=== PATIENT | female | born 1950 | race Caucasian/White ===

== ENCOUNTER 2020-03-04 19:53 | Inpatient (IN) ==
[2020-03-04] MEDS ORDERED: SODIUM CHLORIDE 0.9% 1000ML 1,000 ML IV SCH (20:00)
--- NOTE | 2020-03-04 20:21 | XRay Report ---
XR chest 1V portable HISTORY: 69 years-old Female weakness acute weakness COMPARISON: Chest radiograph 06/25/2014 TECHNIQUE: Portable AP view the chest FINDINGS: Cardiac silhouette is mildly enlarged, unchanged. Calcified plaque the thoracic aortic arch. There is no pneumothorax, pleural effusion, airspace consolidation or overt pulmonary edema. Bones of the [address] appear grossly intact. IMPRESSION: No acute process. ACT 112: Negative or not required by law. The above report was generated using voice recognition software. It may contain grammatical, syntax o r spelling errors. Electronically signed by: Giovani Seay M.D. 03/04/2020 8:19 PM
[2020-03-04 20:32] LABS: Basophils # (auto) 0.01 K/uL (0-0.2); Basophils % (auto) 0.2 %; Eosinophils # (auto) 0.11 K/uL (0-0.5); Hematocrit (blood only) 22.4 % (37-47); Hemoglobin 7.2 g/dL (12.0-16.0); Immature Granulocytes # (auto) 0.02 K/uL (0.00-0.02); Immature Granulocytes % (auto) 0.4 %; Lymphocytes # (auto) 1.99 K/uL (1.2-3.4); Lymphocytes % (auto) 36.9 %; Mean Corpuscular Hemoglobin 29.5 pg (25-34); Mean Corpuscular Hgb Conc 32.1 g/dL (32-36); Mean Corpuscular Volume 91.8 fL (80-100); Mean Platelet Volume 9.2 fL (7.4-10.4); Monocytes # (auto) 0.53 K/uL (0.11-0.59); Monocytes % (auto) 9.8 %; Neutrophils # (auto) 2.74 K/uL (1.4-6.5); Neutrophils % (auto) 50.7 %; Platelet Count 245 K/uL (130-400); RDW Coefficient of Variation 15.7 % (11.5-14.5); RDW Standard Deviation 51.9 fL (36.4-46.3); Red Blood Count 2.44 M/uL (4.2-5.4)
[2020-03-04 20:52] LABS: Alanine Aminotransferase 48 U/L (12-78); Aspartate Aminotransferase 44 U/L (15-37); BUN Creatinine Ratio 21.1 (10-20); Blood Urea Nitrogen 20 mg/dl (7-18); Calcium 8.6 mg/dl (8.5-10.1); Carbon Dioxide 26 mmol/L (21-32); Chloride 104 mmol/L (98-107); Creatinine Clr Calc Pharmacy 61.9 ml/min; Est GFR (Non-African American) 59.5; Glucose 142 mg/dl (70-99); Potassium 3.8 mmol/L (3.5-5.1); Sodium 136 mmol/L (136-145)
[2020-03-04 21:02] LABS: Alkaline Phosphatase 48 U/L (45-117); Bilirubin,Total 0.4 mg/dl (0.2-1); Creatine Kinase 57 U/L (26-192); Troponin I < 0.015 ng/ml (0-0.045)
[2020-03-04] MEDS ORDERED: SODIUM CHLORIDE 0.9% 250 ML IV PRN (21:02)
[2020-03-04 21:08] LABS: RBC Morphology Unremarkable
[2020-03-04] MEDS ORDERED: PANTOPRAZOLE BOLUS/DRIP 1 EA IV STA (21:16)
[2020-03-04] MEDS ORDERED: PANTOprazole 80 MG in DEXTROSE 5% 100 ML IV ONE (21:16)
--- NOTE | 2020-03-04 22:03 | Emergency Department Note ---
History of Present Illness General Chief complaint: Syncope (Near Syncope) Stated complaint: NEAR SYNCOPE Time Seen by Provider: 03/04/20 19:58 Source: patient, EMS, RN notes reviewed and old records reviewed Mode of arrival: EMS Limitations: no limitations History of Present Illness Provider complaint: Syncopal episode Onset (ago): hour(s) less than 1 Associated symptoms: + weakness and + other (black tarry stool) Treatments prior to arrival: none This is a 69-year-old female who presents emergency department complaining of a syncopal episode. The patient reports she was heading to the house when she felt dizzy and passed out. Patient reports she had a similar episode and was previously in this emergency department and was found to be related to hyponatremia as well as hypokalemia. The patient denies any pain. Home Medications Home Medications Medication Instructions Recorded Confirmed Type carvedilol 6.25 mg PO BID 03/04/20 03/04/20 History escitalopram oxalate 10 mg PO DAILY 03/04/20 03/04/20 History ezetimibe 10 mg PO DAILY 03/04/20 03/04/20 History ferrous sulfate 325 mg PO DAILY 03/04/20 03/04/20 History montelukast 10 mg PO HS 03/04/20 03/04/20 History potassium chloride 20 meq PO BID 03/04/20 03/04/20 History ramipril 10 mg PO BID 03/04/20 03/04/20 History rivaroxaban [Xarelto] 20 mg PO DAILY 03/04/20 03/04/20 History rosuvastatin 40 mg PO DAILY 03/04/20 03/04/20 History sitagliptin [Januvia] 25 mg PO DAILY 03/04/20 03/04/20 History Allergies Allergy/AdvReac Type Severity Reaction Status Date / Time moxifloxacin Allergy Unknown RASH Verified 03/04/20 21:40 Quinolones Allergy Unknown HIVES-PT Verified 07/26/14 07:57 CAN'T RECALL THIS REACTION Past Med/Surg History Medical History (Updated 03/05/20 @ 20:35 by Manish Martell MD) Atrial fibrillation CAD (coronary artery disease) Depression Diabetes mellitus Hyperlipidemia Hypertension Iron deficiency Surgical History (Updated 03/05/20 @ 12:09 by Paco Hester MD) H/O knee surgery History of coronary artery stent placement History of hip surgery Social History Smoking Status: Former smoker Hx Alcohol Use: Yes Hx Substance Use: No Preferred Language: Divehi Communication Ability: Effective Beliefs That Will Affect Care: None Current Living Situation: Significant Other Feels Safe at Home: Yes Safety Concerns: Feels Safe At This Time Review of Systems A total of 10 systems reviewed and were otherwise negative Physical Exam Vital Signs Vital Signs - 24 hr 03/04/20 22:02 03/04/20 22:03 03/04/20 23:04 Temperature 36.9 C Temperature Source Oral Pulse Rate 62 Pulse Rate [Apical] 56 L Pulse Rate from SpO2 Sensor Respiratory Rate 16 18 18 Blood Pressure 136/60 Blood Pressure [Right Arm] 123/64 Blood Pressure Mean 85 Blood Pressure Mean [Right Arm] 83 Pulse Oximetry 100 98 Oxygen Delivery Method Room Air 03/04/20 23:15 03/04/20 23:25 03/04/20 23:26 Temperature 37 C Temperature Source Oral Pulse Rate 57 L 56 L 58 L Pulse Rate [Apical] 56 L Pulse Rate from SpO2 Sensor 58 L 58 L Respiratory Rate 18 18 17 Blood Pressure 138/75 133/55 L 133/55 L Blood Pressure [Right Arm] 138/75 Blood Pressure Mean 103 81 70 Blood Pressure Mean [Right Arm] 96 Pulse Oximetry 100 97 100 Oxygen Delivery Method Room Air VITAL SIGNS - Vital signs and nursing notes were reviewed. GENERAL - 69-year-old female appearing pale, stated age who is in no acute distress. Communicates well with provider and answers questions appropriately. SKIN - Without rashes. HEAD - NC/AT. EYES - PERRL with EOMI bilaterally. Sclera anicteric. Palpebral conjunctiva pink and moist with no injection noted. EARS - No deformities of external structures noted on gross examination bilaterally. No pain elicited with palpation of the tragus bilaterally. External auditory canals without discharge or otorrhea. Tympanic membranes pearly garcia without retraction or bulging. No fluid or purulent material visualized behind the TM. Handle of malleus, umbo, cone of light, pars tensa/flaccid all easily visualized. NOSE - Midline and without cyanosis. No epistaxis or purulent drainage noted. Septum midline without deviation or septal hematoma noted. MOUTH/OROPHARYNX - Without perioral cyanosis. Buccal mucosa pink and moist and without leukoplakia. Tongue midline with equal elevation of palate bilaterally. No tonsillar hypertrophy, erythema, or exudates noted. dentition noted. NECK - Neck with FROM. Supple to palpation. lymphadenopathy noted. No nuchal rigidity. LUNGS - Chest wall symmetric without accessory muscle use, intercostals retractions, or central cyanosis. Normal vesicular breath sounds CTA B/L. No wheezes, rales, or rhonchi appreciated. CARDIAC - RRR with S1/S2. No murmur, rubs, or gallops appreciated. ABDOMEN - Abdominal contour without pulsations or visible masses. BS no rmoactive all four quadrants. No tenderness, palpable masses, hepatosplenomegaly, or ascites noted. RECTAL: rectal vault empty EXTREMITIES - No clubbing or peripheral cyanosis. No pretibial edema present. +3/5 radial, posterior tibial, and dorsalis pedis pulses palpated throughout. +5/5 strength noted in UE/LE bilaterally. NEUROLOGIC - Cranial nerves II through XII grossly intact. Sensory intact to light touch throughout. Patellar reflexes +2/4. PSYCH - A&Ox3 and cooperates fully with examiner. Pt is very pleasant and interacts well with examiner. Course Administered Medications Potassium Chloride/Sodium Chloride (Normal Saline W/20 Meq Kcl) 20 meq in 1,000 mls @ 100 mls/hr IV .Q10H TARYN Stop: 04/04/20 02:14 Last Admin: 03/05/20 13:48 Dose: 100 mls/hr Documented by: [id number] Infusion: 03/05/20 13:26 Dose: 0 mls/hr Documented by: [id number] Admin: 03/05/20 02:59 Dose: 100 mls/hr Documented by: [id number] Iron Sucrose 300 mg/ Sodium (Chloride) 265 mls @ 176.667 mls/hr IV DAILY@1500 TARYN Stop: 03/07/20 16:29 Last Infusion: 03/05/20 16:07 Dose: 0 mls/hr Documented by: [id number] Admin: 03/05/20 14:27 Dose: 176.7 mls/hr Documented by: [id number] Insulin Aspart (Insulin Aspart 100 Units/Ml 3 Ml Pen) 0 units SC Q6 TARYN Stop: 04/04/20 02:14 Last Admin: 03/05/20 18:13 Dose: 4 units Documented by: [id number] Cosigned by: [id number] Admin: 03/05/20 13:58 Dose: Not Given Documented by: [id number] Cosigned by: [id number] Admin: 03/05/20 06:11 Dose: Not Given Documented by: [id number] Cosigned by: [id number] Admin: 03/05/20 02:28 Dose: Not Given Documented by: [id number] Cosigned by: [id number] Discontinued Medications Sodium Chloride (Nss 1000ml) 1,000 mls @ 999 mls/hr IV .Q1H1M TARYN Stop: 03/04/20 21:00 Last Infusion: 03/04/20 23:16 Dose: 0 mls/hr Documented by: [id number] Admin: 03/04/20 20:14 Dose: 999 mls/hr Documented by: [id number] Pantoprazole Sodium (Protonix Bolus/Drip) 0 mls @ 1 mls/hr IV ONE STA Stop: 03/04/20 21:17 Last Infusion: 03/05/20 02:20 Dose: 0 mls/hr Documented by: [id number] Admin: 03/04/20 22:02 Dose: 1 mls/hr Documented by: [id number] Pantoprazole Sodium 40 mg/ (Dextrose) 100 mls @ 20 mls/hr IV Q5H TARYN Stop: 04/03/20 21:30 Last Infusion: 03/05/20 18:28 Dose: 0 mg/hr, 0 mls/hr Documented by: [id number] Admin: 03/05/20 18:14 Dose: 8 mg/hr, 20 mls/hr Documented by: [id number] Infusion: 03/05/20 18:14 Dose: 8 mg/hr, 20 mls/hr Documented by: [id number] Admin: 03/05/20 13:54 Dose: 8 mg/hr, 20 mls/hr Documented by: [id number] Infusion: 03/05/20 13:27 Dose: 0 mg/hr, 0 mls/hr Documented by: [id number] Admin: 03/05/20 07:21 Dose: 8 mg/hr, 20 mls/hr Documented by: [id number] Infusion: 03/05/20 07:21 Dose: 8 mg/hr, 20 mls/hr Documented by: [id number] Admin: 03/05/20 03:00 Dose: 8 mg/hr, 20 mls/hr Documented by: [id number] Infusion: 03/05/20 03:00 Dose: 8 mg/hr, 20 mls/hr Documented by: [id number] Admin: 03/04/20 22:07 Dose: 8 mg/hr, 20 mls/hr Documented by: [id number] Pantoprazole Sodium 80 mg/ (Dextrose) 120 mls @ 400 mls/hr IV NOW ONE Stop: 03/04/20 21:33 Last Infusion: 03/04/20 23:16 Dose: 0 mls/hr Documented by: [id number] Admin: 03/04/20 21:55 Dose: 400 mls/hr Documented by: [id number] Ioversol (Ioversol 100ml) 93 ml IV ONCE ONE Stop: 03/04/20 22:08 Last Admin: 03/04/20 22:08 Dose: 1 ml Documented by: [id number] Critical Care Time I have personally spent greater than 30 minutes of critical care time in the direct management of this patient. This includes bedside care, interpretation of diagnostic studies, and testing, discussion with consultants, patient, and family members, and other required patient management activities. This 30 minutes is in excess of all separately billable procedures. Medical Decision Making Differential Diagnosis Vasovagal event, dehydration, infection, hypoglycemia, electrolyte abnormalities, cardiac sources, intracerebral event, pulmonary embolism, seizure, toxicologic, neurologic, as well as other pathologies. Medical Records Attestation: I reviewed the patient's medical records. Home Medications Current Medication List: was personally reviewed by me Laboratory Data Attestation: I reviewed the patient's lab results. Result diagrams: 03/05/20 17:30 03/04/20 19:20 Lab Results 03/04/20 03/04/20 03/04/20 Range/Units 19:20 19:20 21:15 WBC 5.40 (4.8-10.8) K/uL RBC 2.44 L (4.2-5.4) M/uL Hgb 7.2 L (12.0-16.0) g/dL Hct 22.4 L (37-47) % MCV 91.8 (80-100) fL MCH 29.5 (25-34) pg MCHC 32.1 (32-36) g/dL RDW Std Deviation 51.9 H (36.4-46.3) fL RDW Coeff of Mark 15.7 H (11.5-14.5) % Plt Count 245 (130-400) K/uL MPV 9.2 (7.4-10.4) fL Immature Gran % (Auto) 0.4 % Neut % (Auto) 50.7 % Lymph % (Auto) 36.9 % [place] % (Auto) 9.8 % Eos % (Auto) 2.0 % Baso % (Auto) 0.2 % Neut # (Auto) 2.74 (1.4-6.5) K/uL Lymph # (Auto) 1.99 (1.2-3.4) K/uL [place] # (Auto) 0.53 (0.11-0.59) K/uL Eos # (Auto) 0.11 (0-0.5) K/uL Baso # (Auto) 0.01 (0-0.2) K/uL Immature Gran # (Auto) 0.02 (0.00-0.02) K/uL RBC Morphology Unremarkable Sodium 136 (136-145) mmol/L Potassium 3.8 (3.5-5.1) mmol/L Chloride 104 (98-107) mmol/L Carbon Dioxide 26 (21-32) mmol/L Anion Gap 6.0 (3-11) BUN 20 H (7-18) mg/dl Creatinine 0.96 (0.6-1.2) mg/dl Est Cr Clr Drug Dosing 61.9 ml/min Est GFR ( Amer) 69.0 Est GFR (Non-Af Amer) 59.5 BUN/Creatinine Ratio 21.1 H (10-20) Glucose 142 H (70-99) mg/dl Calcium 8.6 (8.5-10.1) mg/dl Total Bilirubin 0.4 (0.2-1) mg/dl AST 44 H (15-37) U/L ALT 48 (12-78) U/L Alkaline Phosphatase 48 (45-117) U/L Total Creatine Kinase 57 (26-192) U/L Troponin I < 0.015 (0-0.045) ng/ml Total Protein 6.0 L (6.4-8.2) gm/dl Albumin 3.0 L (3.4-5.0) gm/dl Globulin 3.0 (2.5-4.0) gm/dl Albumin/Globulin Ratio 1.0 (0.9-2) TSH 2.270 (0.300-4.500) uIu/ml Blood Type A Positive Antibody Screen NEGATIVE Crossmatch See Detail Imaging Data Radiologist's Impression: [place], [place] [phone] XRay Report Patient: VICKY FONTENOT Admit Date: 03/04/20 MR#: [id number] Address1: [address] [place] [address] Acct ID:[id number] Address2: Date: 1950 [facility] Zip: [place] [address] Age: 69 Location: ED Sex: F Room/Bed: Att Phy: Diagnosis: SYNCOPE Venus Phy: PCP,NO Service Date: 03/04/20 [facility] Phy: Interpreting Phy: Brady Seay Admit Phy: Ordering Phy: Manish Martell MD cc: ~ XR chest 1V portable HISTORY: 69 years-old Female weakness acute weakness COMPARISON: Chest radiograph 06/25/2014 TECHNIQUE: Portable AP view the chest FINDINGS: Cardiac silhouette is mildly enlarged, unchanged. Calcified plaque the thoracic aortic arch. There is no pneumothorax, pleural effusion, airspace consolidation or overt pulmonary edema. Bones of the chest appear grossly intact. IMPRESSION: No acute process. ACT 112: Negative or not required by law. The above report was generated using voice recognition software. It may contain grammatical, syntax or spelling errors. Electronically signed by: Giovani Seay M.D. 03/04/2020 8:19 PM Dictated: 03/04/202018 Transcribed: 03/04/202018 CT abdomen pelvis with contrast: Colonic diverticuli without diverticulitis. Unremarkable appendix. No GI or urinary tract obstruction. ECG Data Attestation: I personally reviewed and interpreted this ECG as follows: Indication: + syncope Rate (beats per minute): 54 Rhythm: + sinus bradycardia ECG Intervals/blocks: + Normal QT-c (441) ECG [place]: + Normal ECG ST segments: no ST depression and no ST elevation Comparison ECG Date: from (06/25/2014) Change: no significant change Blood Pressure Blood Pressure Findings: Low blood pressure MDM Narrative Patient was seen and evaluated as above in room B8. Review was performed of nursing notes and vital signs. I did review pertinent previous visits and p atient history. After obtaining a thorough history and physical examination the above work up was performed. This is a 69-year-old female who presents emergency department complaining of a syncopal episode. Patient's hemoglobin was found to be 7. Patient reports a history of black and tarry stools although on physical examination she is heme- negative. Based on the history along with the fact that the patient is on Xarelto she was typed and crossed for 1 unit of packed red blood cells and s tarted on Protonix bolus and drip. I did discuss the case with the hospitalist service who did agree to admit the patient. An order was placed for continuous cardiac monitoring. The monitor shows a rate of 56 with NSR rhythm. The patient was evaluated during the global COVID-19 pandemic, and that diagnosis was suspected/considered upon their initial presentation. Their evaluation, treatment and testing was consistent with current guidelines for patients who present with complaints or symptoms that may be related to COVID- 19. Impression & Plan Black stool, Symptomatic anemia, Syncope and collapse Discharge Plan Visit Data Chief Complaint: Syncope (Near Syncope) Stated Complaint: NEAR SYNCOPE ED Provider: Manish Martell Discharge Problem: Black stool, Symptomatic anemia, Syncope and collapse Patient Disposition: Admitted As Inpatient Discharge Instructions Interventions: ED Discharge Assessment Last Done: 03/05/20 01:26
[2020-03-04] MEDS ORDERED: IOVERSOL 100ml IV ONE (22:07)
[2020-03-04] MEDS: PANTOprazole 40 MG in DEXTROSE 5% 100 ML IV SCH (22:07)
[2020-03-04] MEDS ORDERED: DEXTROSE 50% 50 ML SYRINGE IV PRN (23:29)
[2020-03-04] MEDS ORDERED: GLUCOSE 10 TABS/TUBE PO PRN (23:29)
[2020-03-04] MEDS ORDERED: GLUCAGON FOR INJ 1 MG VIAL SQ PRN (23:29)
[2020-03-04] MEDS ORDERED: GLUCOSE 40% GEL 15 GM TUBE PO PRN (23:29)
--- NOTE | 2020-03-04 23:38 | History & Physical Report ---
Date of Service March 04, 2020 Assessment & Plan (1) Syncope and collapse: Secondary to anemia Hold all antihypertensives Present on Admission?: Yes (2) Symptomatic anemia: Hemoglobin 7.2 upon admission. Orders from ED to transfuse 1 unit PRBCs. H&H every 4 hours. N.p.o. status Protonix bolus/drip per protocol Zofran 4 mg IV every 6 hours as needed Present on Admission?: Yes (3) Hyperlipidemia: Holding rosuvastatin due to n.p.o. status Present on Admission?: Yes (4) Atrial fibrillation: Atrial fibrillation/hypertension Hold Xarelto, carvedilol, potassium chloride, and ramipril. (5) Diabetes mellitus: Hold Januvia. Placed on Accu-Cheks before meals and at bedtime/every 6 hours with NovoLog coverage per scale Present on Admission?: Yes (6) Hypertension: See above Present on Admission?: Yes (7) Depression: Holding Lexapro due to n.p.o. status Present on Admission?: Yes (8) Iron deficiency: Holding iron due to n.p.o. status Present on Admission?: Yes History of Present Illness Chief Complaint: The patient presents to the emergency department with complaint of a syncopal episode that occurred while she was walking into her house, felt dizzy and then passed out. Primary Care Provider: Nba Garnett The patient is a 69-year-old female with a past medical history including syncope, hypertension, hyperlipidemia, iron deficiency, diabetes mellitus and atrial fibrillation. She has had a previous episode of syncope, which when assessed in emergency department was felt to be secondary to hyponatremia and hypokalemia. Work-up in emergency department included laboratories revealing hemoglobin of 7.2 and heme positive stool. She had no recent travels or sick exposures. She does regularly take Xarelto. Allergies Allergy/AdvReac Type Severity Reaction Status Date / Time moxifloxacin Allergy Unknown RASH Verified 03/04/20 21:40 Quinolones Allergy Unknown HIVES-PT Verified 07/26/14 07:57 CAN'T RECALL THIS REACTION Home Medications Home Medications Medication Instructions Recorded Confirmed Type carvedilol 6.25 mg PO BID 03/04/20 03/04/20 History escitalopram oxalate 10 mg PO DAILY 03/04/20 03/04/20 History ezetimibe 10 mg PO DAILY 03/04/20 03/04/20 History ferrous sulfate 325 mg PO DAILY 03/04/20 03/04/20 History montelukast 10 mg PO HS 03/04/20 03/04/20 History potassium chloride 20 meq PO BID 03/04/20 03/04/20 History ramipril 10 mg PO BID 03/04/20 03/04/20 History rivaroxaban [Xarelto] 20 mg PO DAILY 03/04/20 03/04/20 History rosuvastatin 40 mg PO DAILY 03/04/20 03/04/20 History sitagliptin [Januvia] 25 mg PO DAILY 03/04/20 03/04/20 History Past Med/Surg History Medical History (Updated 03/05/20 @ 02:30 by Nikhil Mueller MD) Atrial fibrillation Depression Diabetes mellitus Hyperlipidemia Hypertension Iron deficiency Social History Smoking Status: Never smoker Preferred Language: Kiswahili Feels Safe at Home: Yes Review of Systems Review of Systems: The patient denies chest pain, palpitations, shortness of breath, dyspnea on exertion, cough, lower extremity swelling, sore throat, fevers, chills, sweats, nausea, vomiting, diarrhea , constipation, abdominal pain, pelvic pain, blood in urine or stool, dysuria, urinary frequency or urgency, headache, rash, abnormal bruising or bleeding, imbalance, focal or generalized weakness, numbness or tingling in arms or legs, generalized arthralgias or myalgias, back or neck pain, or night sweats. The review of systems is otherwise negative other than for that already noted above, and at least 10 systems have been reviewed. Physical Exam Physical Exam: The patient is awake, alert and oriented 3, well developed and well nourished, normocephalic and atraumatic, lying in bed and in no acute distress. HEENT--PERRL, EOMI, mucous membranes and oropharynx normal. Neck--supple. No JVD. No bruits. Thyroid normal, trachea midline, no adenopathy. Heart--normal S1 and S2. No murmurs, rubs or gallops. Lungs--clear bilaterally, no respiratory distress, no accessory muscle use. Abdomen--normal bowel sounds and soft. Nontender. Nondistended. Extremities--no cyanosis or clubbing. No edema. Dermatologic--normal skin turgor, normal color, no abnormal lymph nodes, no rash. Neurologic--cranial nerves II through XII grossly intact. Rheumatologic--normal range of motion. Psychiatric--normal affect. Results & Data Results & Data ([facility]) Vital Signs (Past 12 Hours) Vital Signs Temp Pulse Pulse Resp BP BP Pulse Ox 03/04/20 23:25 98.6 F 56 L 18 133/55 L 97 03/04/20 23:15 56 L 18 138/75 100 03/04/20 23:04 98.4 F 62 18 136/60 98 03/04/20 22:03 56 L 18 123/64 100 03/04/20 20:10 98.4 F 59 L 18 108/77 100 Laboratory Results Laboratory Results WBC 5.40 K/uL (4.8-10.8) 03/04/20 19:20 RBC 2.44 M/uL (4.2-5.4) L 03/04/20 19:20 Hgb 7.2 g/dL (12.0-16.0) L 03/04/20 19:20 Hct 22.4 % (37-47) L 03/04/20 19:20 MCV 91.8 fL (80-100) 03/04/20 19:20 MCH 29.5 pg (25-34) 03/04/20 19:20 MCHC 32.1 g/dL (32-36) 03/04/20 19:20 RDW Std Deviation 51.9 fL (36.4-46.3) H 03/04/20 19:20 RDW Coeff of Mark 15.7 % (11.5-14.5) H 03/04/20 19:20 Plt Count 245 K/uL (130-400) 03/04/20 19:20 MPV 9.2 fL (7.4-10.4) 03/04/20 19:20 Immature Gran % (Auto) 0.4 % 03/04/20 19:20 Neut % (Auto) 50.7 % 03/04/20 19:20 Lymph % (Auto) 36.9 % 03/04/20 19:20 Nicholas % (Auto) 9.8 % 03/04/20 19:20 Eos % (Auto) 2.0 % 08/14/20 19:20 Baso % (Auto) 0.2 % 03/04/20 19:20 Neut # (Auto) 2.74 K/uL (1.4-6.5) 03/04/20 19:20 Lymph # (Auto) 1.99 K/uL (1.2-3.4) 03/04/20 19:20 Nicholas # (Auto) 0.53 K/uL (0.11-0.59) 03/04/20 19:20 Eos # (Auto) 0.11 K/uL (0-0.5) 03/04/20 19:20 Baso # (Auto) 0.01 K/uL (0-0.2) 03/04/20 19:20 Immature Gran # (Auto) 0.02 K/uL (0.00-0.02) 03/04/20 19:20 RBC Morphology Unremarkable 03/04/20 19:20 Sodium 136 mmol/L (136-145) 03/04/20 19:20 Potassium 3.8 mmol/L (3.5-5.1) 03/04/20 19:20 Chloride 104 mmol/L (98-107) 03/04/20 19:20 Carbon Dioxide 26 mmol/L (21-32) 03/04/20 19:20 Anion Gap 6.0 (3-11) 03/04/20 19:20 BUN 20 mg/dl (7-18) H 03/04/20 19:20 Creatinine 0.96 mg/dl (0.6-1.2) 03/04/20 19:20 Est Cr Clr Drug Dosing 61.9 ml/min 03/04/20 19:20 Est GFR ( Amer) 69.0 03/04/20 19:20 Est GFR (Non-Af Amer) 59.5 03/04/20 19:20 BUN/Creatinine Ratio 21.1 (10-20) H 03/04/20 19:20 Glucose 142 mg/dl (70-99) H 03/04/20 19:20 Calcium 8.6 mg/dl (8.5-10.1) 03/04/20 19:20 Total Bilirubin 0.4 mg/dl (0.2-1) 03/04/20 19:20 AST 44 U/L (15-37) H 03/04/20 19:20 ALT 48 U/L (12-78) 03/04/20 19:20 Alkaline Phosphatase 48 U/L (45-117) 03/04/20 19:20 Total Creatine Kinase 57 U/L (26-192) 03/04/20 19:20 Troponin I < 0.015 ng/ml (0-0.045) 03/04/20 19:20 Total Protein 6.0 gm/dl (6.4-8.2) L 03/04/20 19:20 Albumin 3.0 gm/dl (3.4-5.0) L 03/04/20 19:20 Globulin 3.0 gm/dl (2.5-4.0) 03/04/20 19:20 Albumin/Globulin Ratio 1.0 (0.9-2) 03/04/20 19:20 TSH 2.270 uIu/ml (0.300-4.500) 03/04/20 19:20 Blood Type A Positive 03/04/20 21:15 Antibody Screen NEGATIVE 03/04/20 21:15 Crossmatch See Detail 03/04/20 21:15 Diagnostic Findings [place] [phone] XRay Report Patient: VICKY FONTENOT Date: 03/04/20 MR#: [id number]: [address] [facility] Acct ID:[id number]: Date: [address] Zip: [place] [address] Age: 69Location: ED Sex: F Room/Bed: Att Phy:Diagnosis: SYNCOPE Venus Phy: PCP,NOService Date: 03/04/20 Fam Phy:Interpreting Phy: Brady Seay Admit Phy: Ordering Phy: Manish Martell MD cc: ~ XR chest 1V portable HISTORY: 69 years-old Female weakness acute weakness COMPARISON: Chest radiograph 06/25/2014 TECHNIQUE: Portable AP view the chest FINDINGS: Cardiac silhouette is mildly enlarged, unchanged. Calcified plaque the thoracic aortic arch. There is no pneumothorax, pleural effusion, airspace consolidation or overt pulmonary edema. Bones of the chest appear grossly intact. IMPRESSION: No acute process. ACT 112: Negative or not required by law. The above report was generated using voice recognition software. It may contain grammatical, syntax or spelling errors. Electronically signed by: Giovani Seay M.D. 03/04/2020 8:19 PM Dictated: 03/04/202018 Transcribed: 03/04/202018 [facility] Patient: VICKY FONTENOT (Female) : 46 Status: ER Date: 03/04/20 22:25 Room #: History: abd pain low blood count Slices: [phone] Priors: Tech: Tai Gtz @ [phone] Exams: CT ABDOMEN & PELVIS With Contrast Contrast: IV Amt: 93 ml optiray Accession Numbers: [id number] Preliminary Findings Only See Final Report For Complete Findings CT ABDOMEN & PELVIS With Contrast: Colonic diverticula without diverticulitis. Unremarkable appendix. No GI or urinary tract obstruction. Radiologist: Can Denise M.D. Study ready at 22:26 and initial results transmitted at 22:57 *This report constitutes a preliminary interpretation only. Non-acute findings felt to be unrelated to the clinical presentation may not be discussed in this report. The study will be interpreted and a final report will be generated by the local Radiologist the following shift. To reach the hospital radiology department call [phone]. If a discrepancy is found between the preliminary and final interpretations of this study, please notify us via our Client Portal at [email or web address].You can also fax this report with a description of the discrepancy, or include the final report, to our daytime fax number [phone].If faxing, please indicate the severity of discrepancy using one of the following categories: [ ] 1 - Agree/Informational [ ] 2 - Unlikely to Affect Management [ ] 3 - Possible Eventual Change of Management [ ] 4 - Probable Immediate Change of Management For all other patient related information, please fax us at [phone]. [id number] Code Status & VTE Plan Code Status Full code VTE Prophylaxis Plan VTE Prophylaxis will be ordered: Yes PG Care Time/CCT Total # of Minutes Spent Total Time Spent with Patient: Total time spent is greater than 50% in coordination of care (as documented) at patient's floor/unit and/or counseling patient: Coding Level of Care Code 41526 Initial Inpt Care Lvl 3 Diagnoses Syncope and collapse R55 Symptomatic anemia D64.9 Hyperlipidemia E78.5 Atrial fibrillation I48.91 Diabetes mellitus E11.9 Hypertension I10 Depression F32.9 Iron deficiency E61.1
[2020-03-05] MEDS: INSULIN ASPART 100 UNITS/ML 3 ML PEN SC SCH ×4 (02:28→18:13)
[2020-03-05 02:50] LABS: Hematocrit (blood only) 23.6 % (37-47); Hemoglobin 7.7 g/dL (12.0-16.0)
[2020-03-05] MEDS: NSS + 20MEQ KCL 20 MEQ/1,000 ML BAG IV SCH ×2 (02:59→13:48)
[2020-03-05] MEDS: PANTOprazole 40 MG in DEXTROSE 5% 100 ML IV SCH ×4 (03:00→18:14)
--- NOTE | 2020-03-05 07:37 | CT Scan Report ---
CT abd pelvis IV con only CLINICAL HISTORY: Abdominal pain COMPARISON STUDY: None. TECHNIQUE: The patient was scanned in a dynamic helical fashion during intravenous administration of 93 cc of Optiray 320 A dose lowering technique was utilized adhering to the principles of ALARA. CT DOSE: 783.81 mGy.cm FINDINGS: Lower chest: There are mild basilar atelectatic changes. There is no pericardial effusion. Liver: There is a 3 mm right lobe hepatic hypodensity, likely benign. Portal veins appear patent. There is no ductal dilatation. Gallbladder: Unremarkable. Spleen: Normal in size and attenuation. Pancreas: Unremarkable. Adrenal glands: Unremarkable. Kidneys: There is symmetric renal cortical enhancement. The kidneys are normal in size without hydron ephrosis. Bowel: There are no transition zones to indicate bowel obstruction. There is no evidence of acute div erticulitis. There is mild fecal retention. Appears normal. Peritoneum: There is no intraperitoneal free air or abdominal ascites. Vasculature: The abdominal aorta is normal in course and caliber. Adenopathy: None. Pelvic viscera: The bladder, and pelvic viscera are unremarkable. Skeletal structures: There is a total right hip arthroplasty. No destructive skeletal lesions are vis ualized. IMPRESSION: 1. No acute intra-abdominal findings. 2. No evidence of bowel obstruction. No evidence of free air 3. No evidence of acute diverticulitis. Normal appendix 4. Mild fecal retention ACT 112: Negative or not required by law. Electronically signed by: Victor Hugo Condon M.D. 03/05/2020 7:36 AM
[2020-03-05 07:43] LABS: Hemoglobin 7.7 g/dL (12.0-16.0)
[2020-03-05 08:02] LABS: Estimated Average Glucose 117 mg/dl; Hemoglobin A1C 5.7 % (4.5-5.6)
--- NOTE | 2020-03-05 11:53 | Gastrointestinal Consultation ---
Date of Consultation March 05, 2020 Assessment & Plan (1) Symptomatic anemia: EGD today to r/o UGI source of blood loss. (2) Black stool: History of Present Illness Attending Physician: Dewayne Skinner MD History of Present Illness 69 years old female patient with medical comorbids of HTN, DLP, AFIB on Xarelto, admitted with black stool and symptomatic anemia, given PRBC and feels better, denies abdominal pain, nausea or vomiting, no NSAIDs use. Allergies Allergy/AdvReac Type Severity Reaction Status Date / Time moxifloxacin Allergy Unknown RASH Verified 03/04/20 21:40 Quinolones Allergy Unknown HIVES-PT Verified 07/26/14 07:57 CAN'T RECALL THIS REACTION Home Medications Home Medications Medication Instructions Recorded Confirmed Type carvedilol 6.25 mg PO BID 03/04/20 03/04/20 History escitalopram oxalate 10 mg PO DAILY 03/04/20 03/04/20 History ezetimibe 10 mg PO DAILY 03/04/20 03/04/20 History ferrous sulfate 325 mg PO DAILY 03/04/20 03/04/20 History montelukast 10 mg PO HS 03/04/20 03/04/20 History potassium chloride 20 meq PO BID 03/04/20 03/04/20 History ramipril 10 mg PO BID 03/04/20 03/04/20 History rivaroxaban [Xarelto] 20 mg PO DAILY 03/04/20 03/04/20 History rosuvastatin 40 mg PO DAILY 03/04/20 03/04/20 History sitagliptin [Januvia] 25 mg PO DAILY 03/04/20 03/04/20 History Patient History Medical History (Updated 03/05/20 @ 11:52 by Adan Meadows MD) Atrial fibrillation Depression Diabetes mellitus Hyperlipidemia Hypertension Iron deficiency Social History Smoking Status: Former smoker Hx Alcohol Use: Yes Hx Substance Use: No Preferred Language: Setswana Communication Ability: Effective Beliefs That Will Affect Care: None Current Living Situation: Significant Other Feels Safe at Home: Yes Safety Concerns: Feels Safe At This Time Review of Systems Constitutional: no fever, no chills, no fatigue and no weight loss Eyes: no eye pain and no worsening vision Ear, Nose, Mouth, Throat: no tinnitus, no dizziness, no nasal discharge and no epistaxis Respiratory: no cough, no dyspnea, no dyspnea on exertion and no wheezing Cardiovascular: no chest pain, no orthopnea, no palpitations and no edema Gastrointestinal: as per Subjective / HPI Genitourinary: no dysuria, no urinary frequency, no urinary incontinence and no hematuria Musculoskeletal: no stiffness and no myalgia Neurologic: no localized weakness, no paralysis, no tremor(s) and no headache(s) Endocrine: no polydipsia and no polyuria Hematologic / Lymphatic: no easy bleeding and no night sweats Physical Exam Constitutional: + well hydrated, cooperative and comfortable Eyes: PERRL, conjunctivae normal, anicteric sclerae ENMT: external ear and nose normal, oropharynx normal Neck: normal visual inspection and trachea midline Respiratory: normal respiratory effort, lungs clear to auscultation Auscultation: no wheezes Cardiovascular: RRR, no murmur, no edema Gastrointestinal (Abdomen): normal bowel sounds, soft, nontender, no hepatosplenomegaly Musculoskeletal: no cyanosis or clubbing, extremities motor strength 5/5 Skin: no rashes, warm and dry Neurologic: awake; no focal motor deficits Motor/Sensory: no tremor Results & Data ([facility]) Vital Signs (Past 12 Hours) Vital Signs Temp Pulse Pulse Resp BP BP Pulse Ox 03/05/20 11:47 36.8 C 86 17 120/69 100 03/05/20 08:07 36.6 C 57 L 18 121/71 97 03/05/20 08:00 54 L 03/05/20 04:05 36.8 C 56 L 19 114/65 99 03/05/20 02:38 36.7 C 50 L 16 132/74 93 03/05/20 00:45 54 L 18 131/64 100 03/05/20 00:41 56 L 18 131/64 100 03/05/20 00:30 56 L 18 127/63 99 03/05/20 00:15 56 L 18 132/66 100 03/05/20 00:11 56 L 18 132/66 97 Laboratory Results Laboratory Results - last 24 hr 03/04/20 03/04/20 03/04/20 19:20 19:20 21:15 WBC 5.40 RBC 2.44 L Hgb 7.2 L Hct 22.4 L MCV 91.8 MCH 29.5 MCHC 32.1 RDW Std Deviation 51.9 H RDW Coeff of Mark 15.7 H Plt Count 245 MPV 9.2 Immature Gran % (Auto) 0.4 Neut % (Auto) 50.7 Lymph % (Auto) 36.9 [place] % (Auto) 9.8 Eos % (Auto) 2.0 Baso % (Auto) 0.2 Neut # (Auto) 2.74 Lymph # (Auto) 1.99 [place] # (Auto) 0.53 Eos # (Auto) 0.11 Baso # (Auto) 0.01 Immature Gran # (Auto) 0.02 RBC Morphology Unremarkable Sodium 136 Potassium 3.8 Chloride 104 Carbon Dioxide 26 Anion Gap 6.0 BUN 20 H Creatinine 0.96 Est Cr Clr Drug Dosing 61.9 Est GFR ( Amer) 69.0 Est GFR (Non-Af Amer) 59.5 BUN/Creatinine Ratio 21.1 H Glucose 142 H POC Glucose Estimat Average Glucose Hemoglobin A1c Calcium 8.6 Total Bilirubin 0.4 AST 44 H ALT 48 Alkaline Phosphatase 48 Total Creatine Kinase 57 Troponin I < 0.015 Total Protein 6.0 L Albumin 3.0 L Globulin 3.0 Albumin/Globulin Ratio 1.0 TSH 2.270 COVID-19 Eval Order SARS-CoV-2, RNA, NAAT Blood Type A Positive Antibody Screen NEGATIVE Crossmatch See Detail 03/05/20 03/05/20 03/05/20 02:26 02:42 06:09 WBC RBC Hgb 7.7 L Hct 23.6 L MCV MCH MCHC RDW Std Deviation RDW Coeff of Mark Plt Count MPV Immature Gran % (Auto) Neut % (Auto) Lymph % (Auto) [place] % (Auto) Eos % (Auto) Baso % (Auto) Neut # (Auto) Lymph # (Auto) [place] # (Auto) Eos # (Auto) Baso # (Auto) Immature Gran # (Auto) RBC Morphology Sodium Potassium Chloride Carbon Dioxide Anion Gap BUN Creatinine Est Cr Clr Drug Dosing Est GFR ( Amer) Est GFR (Non-Af Amer) BUN/Creatinine Ratio Glucose POC Glucose 118 H 109 H Estimat Average Glucose Hemoglobin A1c Calcium Total Bilirubin AST ALT Alkaline Phosphatase Total Creatine Kinase Troponin I Total Protein Albumin Globulin Albumin/Globulin Ratio TSH COVID-19 Eval Order SARS-CoV-2, RNA, NAAT Blood Type Antibody Screen Crossmatch 03/05/20 03/05/20 03/05/20 06:45 06:45 10:30 WBC RBC Hgb 7.7 L Hct 24.0 L MCV MCH MCHC RDW Std Deviation RDW Coeff of Mark Plt Count MPV Immature Gran % (Auto) Neut % (Auto) Lymph % (Auto) [place] % (Auto) Eos % (Auto) Baso % (Auto) Neut # (Auto) Lymph # (Auto) [place] # (Auto) Eos # (Auto) Baso # (Auto) Immature Gran # (Auto) RBC Morphology Sodium Potassium Chloride Carbon Dioxide Anion Gap BUN Creatinine Est Cr Clr Drug Dosing Est GFR ( Amer) Est GFR (Non-Af Amer) BUN/Creatinine Ratio Glucose POC Glucose Estimat Average Glucose 117 Hemoglobin A1c 5.7 H Calcium Total Bilirubin AST ALT Alkaline Phosphatase Total Creatine Kinase Troponin I Total Protein Albumin Globulin Albumin/Globulin Ratio TSH COVID-19 Eval [facility] SARS-CoV-2, RNA, NAAT Blood Type Antibody Screen Crossmatch 03/05/20 10:30 WBC RBC Hgb Hct MCV MCH MCHC RDW Std Deviation RDW Coeff of Mark Plt Count MPV Immature Gran % (Auto) Neut % (Auto) Lymph % (Auto) [place] % (Auto) Eos % (Auto) Baso % (Auto) Neut # (Auto) Lymph # (Auto) [place] # (Auto) Eos # (Auto) Baso # (Auto) Immature Gran # (Auto) RBC Morphology Sodium Potassium Chloride Carbon Dioxide Anion Gap BUN Creatinine Est Cr Clr Drug Dosing Est GFR ( Amer) Est GFR (Non-Af Amer) BUN/Creatinine Ratio Glucose POC Glucose Estimat Average Glucose Hemoglobin A1c Calcium Total Bilirubin AST ALT Alkaline Phosphatase Total Creatine Kinase Troponin I Total Protein Albumin Globulin Albumin/Globulin Ratio TSH COVID-19 Eval Order SARS-CoV-2, RNA, NAAT NEGATIVE Blood Type Antibody Screen Crossmatch
[2020-03-05] MEDS ORDERED: LIDOCAINE HCL 2% 2 ML VIAL/AMP(20MG/ML) INFIL ONE (12:00)
[2020-03-05] MEDS ORDERED: PROPOFOL IV EMULSION 10 MG/ML 20 ML VIAL IV ONE (12:00)
--- NOTE | 2020-03-05 12:01 | Anesthesiology Consultation ---
Date of Service March 05, 2020 Assessment & Plan (1) Encounter for pre-operative examination: Chart Review Chart Review: Acceptable Risk for Surgery and Patient NOT seen in Pre Admission Testing Consults Requested none History Surgery Operation Date: 03/05/20 12:00 Proposed Procedures p Esophagogastroduodenoscopy - Adan Meadows MD Height/Weight Height: 5 ft 5 in Weight: 86.5 kg Allergies Allergy/AdvReac Type Severity Reaction Status Date / Time moxifloxacin Allergy Unknown RASH Verified 03/04/20 21:40 Quinolones Allergy Unknown HIVES-PT Verified 07/26/14 07:57 CAN'T RECALL THIS REACTION Medications Home Medications Medication Instructions Recorded Confirmed Last Taken carvedilol 6.25 mg PO BID 03/04/20 03/04/20 Unknown escitalopram oxalate 10 mg PO DAILY 03/04/20 03/04/20 Unknown ezetimibe 10 mg PO DAILY 03/04/20 03/04/20 Unknown ferrous sulfate 325 mg PO DAILY 03/04/20 03/04/20 Unknown montelukast 10 mg PO HS 03/04/20 03/04/20 Unknown potassium chloride 20 meq PO BID 03/04/20 03/04/20 Unknown ramipril 10 mg PO BID 03/04/20 03/04/20 Unknown rivaroxaban [Xarelto] 20 mg PO DAILY 03/04/20 03/04/20 Unknown rosuvastatin 40 mg PO DAILY 03/04/20 03/04/20 Unknown sitagliptin [Januvia] 25 mg PO DAILY 03/04/20 03/04/20 Unknown Active Medications Generic Name Dose Route Start Last Admin Trade Name Freq PRN Reason Stop Dose Admin Pantoprazole Sodium 40 mg/ 100 mls @ 20 mls/hr 03/04/20 21:31 03/05/20 07:21 Dextrose IV 04/03/20 21:30 8 mg/hr Q5H TARYN 20 mls/hr Administration 8 MG/HR Potassium Chloride/Sodium Chloride 20 meq in 1,000 mls @ 100 mls/hr 03/05/20 02:15 03/05/20 02:59 Normal Saline W/20 Meq Kcl IV 04/04/20 02:14 100 mls/hr .Q10H TARYN Administration Insulin Aspart 0 units 03/05/20 02:15 03/05/20 06:11 Insulin Aspart 100 Units/Ml 3 Ml Pen SC 04/04/20 02:14 Not Given Q6 TARYN NPO Date Last Intake of Fluids: 03/05/20 Time Last Intake of Fluids: 07:00 Date Last Intake of Solids: 03/04/20 Time Last Intake of Solids: 20:00 Past Medical History Medical History (Updated 03/05/20 @ 12:09 by Paco Hester MD) Atrial fibrillation CAD (coronary artery disease) Depression Diabetes mellitus Hyperlipidemia Hypertension Iron deficiency Exercise / Class Metabolic Activity II 4-5 Yardwork/Stairs/Walk up hill Past Surgical History Surgical History (Updated 03/05/20 @ 12:09 by Paco Hester MD) H/O knee surgery History of coronary artery stent placement History of hip surgery Past Anesthesia History No Hx of Anesthesia Complications and No Family Hx of Anesthesia Complications History of PONV No Hx of PONV and No Hx of Motion Sickness Social History Smoking Status: Former smoker tobacco type: cigarettes Hx Alcohol Use: Yes alcohol intake frequency: holidays/special occasions only Hx Substance Use: No Physical Exam Vital Signs Last Vital Signs Temp 36.8 C 03/05/20 11:47 Pulse 86 03/05/20 11:47 Resp 17 03/05/20 11:47 BP 120/69 03/05/20 11:47 Pulse Ox 100 03/05/20 11:47 Testing Laboratory Results 03/05/20 06:45 03/04/20 19:20 Hemoglobin A1c 5.7 % (4.5-5.6) H 03/05/20 06:45 Blood Type A Positive 03/04/20 21:15 Antibody Screen NEGATIVE 03/04/20 21:15 03/05/20 03/05/20 06:09 02:26 POC Glucose 109 H 118 H Electrocardiogram Date: 03/04/20 Findings: + SB @ (54) Sinus bradycardia Nonspecific ST abnormality Abnormal ECG When compared with ECG of 25-JUN-2014 12:59, Nonspecific T wave abnormality now evident in Inferior leads
[2020-03-05] MEDS ORDERED: fentaNYL citrate 100 MCG/2 ML VIAL IV PRN (12:02)
[2020-03-05] MEDS ORDERED: ONDANSETRON INJ 2 MG/ML 2 ML VIAL IV PRN (12:02)
[2020-03-05] MEDS ORDERED: ePHEDrine sulfate 50 MG/ML AMP IV PRN (12:02)
[2020-03-05] MEDS ORDERED: ATROPINE SULFATE 0.1 MG/ML 10ML SYR IV PRN (12:02)
[2020-03-05] MEDS ORDERED: fentaNYL citrate 100 MCG/2 ML VIAL ONE (12:23)
[2020-03-05] MEDS ORDERED: ePHEDrine sulfate 50 MG/ML AMP ONE (12:32)
[2020-03-05] MEDS ORDERED: PHENYLEPHRINE 100MCG/ML 5ML SYR ONE (12:32)
--- NOTE | 2020-03-05 12:49 | Operative Report ---
Post Operative Report Pre & Post Diagnosis Operation Date: 03/05/20 12:00 Pre-Op Diagnosis: upper GI bleed Post-Op Diagnosis: Upper GI bleed I identified the patient and participated in the time-out.: Yes Procedure Operation Date: 03/05/20 12:00 Actual Procedures p Esophagogastroduodenoscopy with Argon Plasmic Coagulation(Not Applicable) - Adan Meadows MD Surgeon Adan Meadows MD Explosive Operator Grenade None Estimated Blood Loss 0 Findings See Below (Bleeding AVM, treated with APC) Specimens None Description of Procedure EGD I attest to the content of the Intraoperative Record and any orders documented therein. Any exceptions are noted below.
--- NOTE | 2020-03-05 13:31 | Anesthesiology Progress Note ---
Date of Service March 05, 2020 Anesthesia Post Procedure Vital Signs Vital Signs: Temp Pulse Pulse Resp BP BP Pulse Ox 03/05/20 13:30 36.7 C 60 15 121/61 95 03/05/20 13:20 60 18 135/64 99 03/05/20 13:10 62 15 134/63 99 03/05/20 13:00 65 16 136/65 100 03/05/20 12:56 36.1 C L 70 18 151/63 H 100 03/05/20 11:47 36.8 C 86 17 120/69 100 03/05/20 08:07 36.6 C 57 L 18 121/71 97 03/05/20 08:00 54 L 03/05/20 04:05 36.8 C 56 L 19 114/65 99 03/05/20 02:38 36.7 C 50 L 16 132/74 93 03/05/20 00:45 54 L 18 131/64 100 03/05/20 00:41 56 L 18 131/64 100 03/05/20 00:30 56 L 18 127/63 99 03/05/20 00:15 56 L 18 132/66 100 03/05/20 00:11 56 L 18 132/66 97 03/04/20 23:45 59 L 18 134/60 100 03/04/20 23:41 54 L 18 134/60 99 03/04/20 23:30 70 16 137/62 100 03/04/20 23:26 58 L 17 133/55 L 100 03/04/20 23:25 37 C 56 L 18 133/55 L 97 03/04/20 23:15 57 L 56 L 18 138/75 138/75 100 03/04/20 23:04 36.9 C 62 18 136/60 98 03/04/20 22:03 56 L 18 123/64 100 03/04/20 22:02 16 03/04/20 20:10 36.9 C 59 L 18 108/77 100 Pain Intensity Abdomen: Pain Intensity: 0 Transfer of Care Handoff Completed per policy Notes Mental Status: alert / awake / arousable and participated in evaluation Patient Amnestic to Procedure: Yes Nausea / Vomiting: adequately controlled Pain: adequately controlled Airway Patency, RR, SpO2: stable & adequate BP & HR: stable & adequate Hydration State: stable & adequate Anesthetic Complications: no major complications apparent and Pt Satisfied with anesthetic care
--- NOTE | 2020-03-05 13:59 | Hospitalist Progress Note ---
Date of Service March 05, 2020 Assessment & Plan (1) Upper GI bleed: Presumed cause of her anemia and syncope. Reports black stools and dizziness x 1 week. No hx of alcohol use (2-3 drinks/week); no excessive NSAID use. However, is on ASA and Xarelto for heart. - GI consulted - Plan for EGD today per notes. - Continue PPI gtt for now - No indication of cirrhosis to necessitate abx or octreotide - Will start IV iron; transfuse for hgb < 7. (2) Syncope and collapse: Secondary to anemia. No indication of cardiac or neurologic cause. - Hold all antihypertensives (3) Atrial fibrillation: History of paroxsymal atrial fibrillation. EKG on admission was sinus and presently in sinus on monitor. - Hold Xarelto, carvedilol, and ramipril. (4) Diabetes mellitus: A1c was 5.7% this admission. - Hold Januvia. - Sliding scale insulin (5) Hyperlipidemia: - Continue statin as able (6) Hypertension: Holding meds for bleeding at present. (7) Depression: No present concerns. - Continue SSRI as able (8) Iron deficiency: Holding oral iron for now. - IV as above (9) DVT prophylaxis: SCDs - Holding heparin for GI bleed Admission and Anticipated Discharge Date Admission Date: March 04, 2020 Subjective Feels better today after 1 unit of PRBCs. Reports no fevers/chills, chest pain, shortness of breath, abdominal pain, nausea, or vomiting. Physical Exam Constitutional: WD/WN, vitals as above Eyes: EOM intact bilaterally; no conjunctival abnormality ENMT: external ear and nose normal, oropharynx normal Neck: trachea midline, no thyromegaly normal visual inspection Respiratory: normal respiratory effort, lungs clear to auscultation no respiratory distress Cardiovascular: RRR, no murmur, no edema Gastrointestinal (Abdomen): Inspection/Auscultation: abdomen normal to inspection; abdomen not distended Musculoskeletal: no cyanosis or clubbing, extremities motor strength 5/5 Skin: no rashes, warm and dry Neurologic: moves all extremities and awake Psychiatric: Orientation: alert, oriented to person and cooperative Results & Data Results & Data ([facility]) Vital Signs (Past 12 Hours) Vital Signs Temp Pulse Pulse Resp BP Pulse Ox 03/05/20 13:35 57 L 13 128/60 97 03/05/20 13:30 36.7 C 60 15 121/61 95 03/05/20 13:20 60 18 135/64 99 03/05/20 13:10 62 15 134/63 99 03/05/20 13:00 65 16 136/65 100 03/05/20 12:56 36.1 C L 70 18 151/63 H 100 03/05/20 11:47 36.8 C 86 17 120/69 100 03/05/20 08:07 36.6 C 57 L 18 121/71 97 03/05/20 08:00 54 L 03/05/20 04:05 36.8 C 56 L 19 114/65 99 03/05/20 02:38 36.7 C 50 L 16 132/74 93 PG Care Time/CCT Total # of Minutes Spent Total Time Spent with Patient: Total time spent is greater than 50% in coordination of care (as documented) at patient's floor/unit and/or counseling patient: Coding Level of Care Code 37161 Subseq Hosp Care Lvl 3 Diagnoses Upper GI bleed K92.2 Syncope and collapse R55 Atrial fibrillation I48.91 Diabetes mellitus E11.9 Hyperlipidemia E78.5 Hypertension I10 Depression F32.9 Iron deficiency E61.1 DVT prophylaxis Z29.9
[2020-03-05] MEDS ORDERED: IRON SUCROSE 300 MG in SODIUM CHLORIDE 0.9% 250 ML IV SCH (15:00)
--- NOTE | 2020-03-05 15:52 | GI REPORT ---
Patient Name: Martha Kenney Procedure Date: 03/05/2020 12:11 PM Date of : 1950 Admit Type: Inpatient Age: 69 Gender: Female Attending MD: Adan Meadows MD Procedure: Small bowel enteroscopy Providers: Adan Meadows MD Referring MD: Dewayne Skinner Md Indications: Melena Medicines: General Anesthesia Complications: No immediate complications. Estimated Blood Loss: Estimated blood loss: none. Procedure: Pre-Anesthesia Assessment: - Prior to the procedure, a History and Physical was performed, and patient medications, allergies and sensitivities were reviewed. The patient's tolerance of previous anesthesia was reviewed. - The risks and benefits of the procedure and the sedation options and risks were discussed with the patient. All questions were answered and informed consent was obtained. - Patient identification and proposed procedure were verified prior to the procedure by the physician and the nurse. The procedure was verified in the procedure room. - Pre-procedure physical examination revealed no contraindications to sedation. After obtaining informed consent, the endoscope was passed under direct vision. Throughout the procedure, the patient's blood pressure, pulse, and oxygen saturations were monitored continuously. The Endoscope was introduced through the mouth, and advanced to the proximal jejunum. The upper GI endoscopy was accomplished without difficulty. The patient tolerated the procedure well. After obtaining informed consent, the endoscope was passed under direct vision. Throughout the procedure, the patient's blood pressure, pulse, and oxygen saturations were monitored continuously. Findings: The examined esophagus was normal. The entire examined stomach was normal. A single angioectasia with bleeding was found in the area of the papilla, it was better visualized with a duodenoscope. This was around 1 cm on 3 o'clock of the major papilla. Vaporization for hemostasis using argon plasma was successful. There was no evidence of significant pathology in the proximal jejunum. Impression: - Normal esophagus. - Normal stomach. 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 Treated with argon plasma coagulation (APC). - The examined portion of the jejunum was normal. - No specimens collected. Recommendation: - Return patient to [facility] for [facility] care. - Clear liquid diet. - Hold Xarelto for 3 days. - Colonoscopy as OP. Adan Meadows MD 03/05/2020 3:52:40 PM This report has been signed electronically. Note Initiated On: 03/05/2020 12:11 PM Number of Addenda: 0 I attest to the content of the Intraoperative Record and orders documented therein, exceptions below {[id number]}
[2020-03-05] MEDS: CARBOHYDRATES FOR HYPOGLYCEMIA PO PRN ×2 (21:10→21:28)
[2020-03-05] MEDS: PANTOprazole 40 MG in SYRINGE 0 ML IV SCH (21:36)
[2020-03-05] MEDS ORDERED: Nursing to Pharmacy Communication SCH (22:30)
[2020-03-06] MEDS: NSS + 20MEQ KCL 20 MEQ/1,000 ML BAG IV SCH ×2 (02:27→07:41)
[2020-03-06 07:21] LABS: Hematocrit (blood only) 22.9 % (37-47); Hemoglobin 7.7 g/dL (12.0-16.0); Mean Corpuscular Hemoglobin 30.3 pg (25-34); Mean Corpuscular Hgb Conc 33.6 g/dL (32-36); Mean Corpuscular Volume 90.2 fL (80-100); Platelet Count 187 K/uL (130-400); RDW Coefficient of Variation 16.3 % (11.5-14.5); RDW Standard Deviation 52.3 fL (36.4-46.3); Red Blood Count 2.54 M/uL (4.2-5.4); White Blood Count 5.62 K/uL (4.8-10.8)
[2020-03-06] MEDS: PANTOprazole 40 MG in SYRINGE 0 ML IV SCH (07:38)
[2020-03-06] MEDS: INSULIN ASPART 100 UNITS/ML 3 ML PEN SC SCH ×2 (07:44→11:58)
[2020-03-06 08:13] LABS: Albumin Globulin Ratio 0.9 (0.9-2); Albumin Level 2.4 gm/dl (3.4-5.0); BUN Creatinine Ratio 13.6 (10-20); Bilirubin,Total 0.4 mg/dl (0.2-1); Creatinine Clr Calc Pharmacy 83.2 ml/min; Est GFR (African American) 102.5; Est GFR (Non-African American) 88.4; Ferritin 99.7 ng/ml (8-388); Globulin 2.6 gm/dl (2.5-4.0); Magnesium 1.9 mg/dl (1.8-2.4); Potassium 4.1 mmol/L (3.5-5.1)
[2020-03-06] MEDS ORDERED: ROSUVASTATIN CALCIUM 20 MG TAB PO SCH (09:00)
[2020-03-06] MEDS ORDERED: EZETIMIBE 10 MG TABLET PO SCH (09:00)
[2020-03-06] MEDS ORDERED: ESCITALOPRAM OXALATE 10 MG TAB PO SCH (09:00)
[2020-03-06] MEDS ORDERED: IRON SUCROSE 300 MG in SODIUM CHLORIDE 0.9% 250 ML IV STA (09:27)
--- NOTE | 2020-03-06 09:30 | Gastroenterology Progress Note ---
Date of Service March 06, 2020 Assessment & Plan Admission and Anticipated Discharge Date Admission Date: March 04, 2020 Subjective Patient was seen and examined today, feels well, no BM since yesterday, no me pal. Labs reviewed. H/H stable. Recommend: Advance diet. PO PPI. Colonoscopy as OP. Can resume Anticoagulation in 2 days. Recall Gi if needed. Results & Data ([facility]) Vital Signs (Past 12 Hours) Vital Signs Temp Pulse Pulse Resp BP Pulse Ox 03/06/20 08:06 36.7 C 62 18 135/76 97 03/06/20 08:00 55 L 03/06/20 03:44 36.7 C 59 L 18 129/69 99 03/06/20 00:01 36.5 C 59 L 18 127/51 L 97 03/06/20 00:00 53 L
[2020-03-06 11:49] LABS: Folate (Folic Acid) 12.94 ng/ml (>5.38)
--- NOTE | 2020-03-06 13:20 | Discharge Summary ---
Date of Service March 06, 2020 Admission HPI Per Admitting Provider The patient is a 69-year-old female with a past medical history including syncope, hypertension, hyperlipidemia, iron deficiency, diabetes mellitus and atrial fibrillation. She has had a previous episode of syncope, which when assessed in emergency department was felt to be secondary to hyponatremia and hypokalemia. Work-up in emergency department included laboratories revealing hemoglobin of 7.2 and heme positive stool. She had no recent travels or sick exposures. She does regularly take Xarelto. 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 Discharge Exam Constitutional WD/WN, vitals as above Eyes EOM intact bilaterally; no conjunctival abnormality ENMT external ear and nose normal, oropharynx normal Neck trachea midline, no thyromegaly normal visual inspection Respiratory normal respiratory effort, lungs clear to auscultation no respiratory distress Cardiovascular RRR, no murmur, no edema Gastrointestinal (Abdomen) Inspection/Auscultation: abdomen normal to inspection; abdomen not distended Musculoskeletal no cyanosis or clubbing, extremities motor strength 5/5 Skin no rashes, warm and dry Neurologic moves all extremities and awake Psychiatric Orientation: alert, oriented to person and cooperative Discharge Data Allergies Allergy/AdvReac Type Severity Reaction Status Date / Time moxifloxacin Allergy Unknown RASH Verified 03/04/20 21:40 Quinolones Allergy Unknown HIVES-PT Verified 07/26/14 07:57 CAN'T RECALL THIS REACTION Consultations 03/04/20 21:17 ED Decision to Admit Stat 03/04/20 23:33 Consult Case Management - Discharge Planning Routine 03/05/20 09:45 Consult Gastroenterology Routine Procedures Performed Operation Date: 03/05/20 12:00 Actual Procedures p Esophagogastroduodenoscopy with Argon Plasmic Coagulation(Not Applicable) - Adan Meadows MD Ordered Studies 03/04/20 22:03 CT abd pelvis IV con only Urgent Hospital Course (1) Upper GI bleed: Reported black stools and dizziness x 1 week. No hx of alcohol use (2-3 drinks/week); no excessive NSAID use. However, is on ASA and Xarelto for heart. - Required 1 unit PRBCs on 03/05, then hgb > 7.5 after that. Got 2 doses of IV iron in the hospital in hopes this will help rebuild hemoglobin. - GI consulted - EGD on 08/15 showed single AVM in the duodenum. Treated with argon plasma coagulation. - Holding ASA and Xarelto x 3 days and started on PPI x 1 month. F/u with GI. (2) Syncope and collapse: Secondary to anemia. No indication of cardiac or neurologic cause. - Held all antihypertensives -> Restart on discharge for heart health. (3) Atrial fibrillation: History of paroxsymal atrial fibrillation. EKG on admission was sinus and presently in sinus on monitor. - Held Xarelto, carvedilol, and ramipril. Restarted as above. (4) Diabetes mellitus: A1c was 5.7% this admission. - Hold Januvia. - Sliding scale insulin (5) Hyperlipidemia: - Continue statin as able (6) Hypertension: Holding meds for bleeding at present. (7) Depression: No present concerns. - Continued SSRI as able (8) Iron deficiency: Holding oral iron for now. - IV as above (9) DVT prophylaxis: SCDs - Holding heparin for GI bleed Total Time Total Time Spent Total Time Spent (In Minutes): 35 Discharge Plan Discharge Items Patient Disposition: Home - Self-Care Reason For Visit: SYMPTOMATIC ANEMIA, GI BLEED Discharge Diagnosis: AVM (small blood vessel) that bled in the small intestine causing anemia Activity: Resume your previous activity Non-emergency contact: Primary Care Provider and Family Consultant Call non-emergency contact if: your symptoms worsen Follow-up/Referrals: Tr Figueroa MD [Physician] - (Please follow up with Dr. Armando for transition to a [facility] lands resource manager.) Nicki Armando MD [Physician] - (Please follow up with Dr. Armando for transition to a [facility] PCP.) Adan Meadows MD [Hospitalist] - (Please see Dr. Meadows for future colonoscopy and GI care.) Nba Garnett DO [Primary Care Provider] - Diet: Heart Healthy Addtl Attending Provider Instructions: You were admitted to the hospital after passing out which was caused by low red blood cells. The low red blood cells were from a bleed in your small intestine from a blood vessel that had dilated and was getting scraped/irritated. Dr. Meadows was able to use a laser to cauterize this blood vessel, and it should not bleed any further. He did not see any other signs of bleeding during your procedure. We did not see any ulcer or other irritation! This is great! Please hold your aspirin and Xarelto for 3 days. On Saturday, you can start to take both of them again. Please use pantoprazole daily for the next month to be sure your stomach and intestine have time to heal. Please call Dr. Meadows's office with any further symptoms of lightheadedness, dizziness, black/tarry stools, or any other concerning symptoms. Please see your PCP in 1 week for a check of your red blood cells. With the iron we gave you, you should start to build more of them fairly quickly. Finally, take an iron supplement every other day with something high in vitamin C (citrus fruit, orange juice, etc). Taking it more often does not improve absorption and causes more stomach upset. Pending Studies at Discharge: No Stand-Alone Forms: [facility] Cur[facility], Smoking Cessation Medications and DC Order Prescriptions: New pantoprazole 20 mg tablet,delayed release (DR/EC) 20 mg PO DAILY 28 Days Qty: 28 RF: 0 Continued carvedilol 6.25 mg tablet 6.25 mg PO BID RF: 0 escitalopram oxalate 10 mg tablet 10 mg PO DAILY RF: 0 ezetimibe 10 mg tablet 10 mg PO DAILY RF: 0 Januvia 25 mg tablet 25 mg PO DAILY RF: 0 potassium chloride 20 mEq tablet,ER particles/crystals 20 meq PO BID RF: 0 montelukast 10 mg tablet 10 mg PO HS RF: 0 rosuvastatin 40 mg tablet 40 mg PO DAILY RF: 0 ramipril 10 mg capsule 10 mg PO BID RF: 0 Xarelto 20 mg tablet 20 mg PO DAILY RF: 0 Changed ferrous sulfate 325 mg (65 mg iron) tablet 325 mg PO 3XWK Qty: 0 RF: 0 Discharge Orders: Discharge Order (Routine); Ordered 03/06/20 Ordered By: Dewayne Skinner Admission Data Admit Date/Time: 03/04/20 23:30 Attending Provider: Dewayne Skinner Admit Provider: Nikhil Mueller Primary Care Provider: Nba Garnett Other Providers: Dewayne Skinner ; Nikhil Mueller ; Adan Meadows Other Interventions: Discharge Summary Assessment (RN) Last Done: 03/06/20 12:29 Coding Level of Care Code D/C Day Management >30 mins Diagnoses Upper GI bleed K92.2 Syncope and collapse R55 Atrial fibrillation I48.91 Diabetes mellitus E11.9 Hyperlipidemia E78.5 Hypertension I10 Depression F32.9 Iron deficiency E61.1 DVT prophylaxis Z29.9
--- NOTE | 2020-03-06 16:23 | Electrocardiogram Report ---
Test Reason : Blood Pressure : / mmHG Vent. Rate : 054 BPM Atrial Rate : 054 BPM P-R Int : 162 ms QRS Dur : 094 ms QT Int : 466 ms P-R-T Axes : 047 061 033 degrees QTc Int : 441 ms Sinus bradycardia Nonspecific ST abnormality Abnormal ECG When compared with ECG of 25-JUN-2014 12:59, No significant change Confirmed by Tr Figueroa ([id number]) on 03/06/2020 4:23:41 PM Referred By: REFERRED SELF Confirmed By:Tr Figueroa
== END 2020-03-06 14:17 | disposition home or self-care (01) | DRG 379 ==
LOC: ED 19:53 → SUATTDRO 23:30 → 2S 23:30